=== PATIENT | female | born 1980 | race Caucasian/White ===

== ENCOUNTER 2017-05-21 18:39 | Inpatient (IN) | payer MEDICAID, OTHER ==
--- NOTE | 2017-05-21 18:55 | ED ---
Psych HPI <Vishal Portillo - Last Filed: 05/21/17 20:53> - General Source: patient, RN notes reviewed Mode of arrival: ambulatory Limitations: no limitations <Georges Stewart - Last Filed: 05/22/17 08:05> - General Stated Complaint: suicidal thoughts Time Seen by Provider: 05/21/17 18:42 - History of Present Illness Initial Comments: 36-year-old female presents emergency Department chief complaint of depression, suicidal thoughts. Patient states she has major depressive disorder and bipolar disorder. Patient states that she's been more depressed recently and had some thoughts to hurt herself. Patient states she did cut her finger the other day with a little piece of glass. Her tetanus is up-to-date. Patient denies any alcohol abuse but states that she has a history of drug abuse which she was admitted to opiate pills. She states she has been mostly sober over the last 6 months and currently sees an addiction counselor. Patient denies any fevers, chills, headache, dizziness, chest pain or shortness of breath. ( Georges Stewart) - Related Data Home Medications Medication Instructions Recorded Confirmed Buprenorphine HCl/Naloxone HCl 1 film BC BID 05/21/17 05/21/17 [Bunavail 4.2-0.7 mg Film] Cariprazine HCl [Vraylar] 3 mg PO DAILY 05/21/17 05/21/17 Levomilnacipran HCl [Fetzima] 20 mg PO DAILY 05/21/17 05/21/17 Mirtazapine [Remeron] 15 mg PO HS 05/21/17 05/21/17 Montelukast Sodium [Singulair] 10 mg PO DAILY 05/21/17 05/21/17 Multivitamin [Multivitamins Adult 1 tab PO DAILY 05/21/17 05/21/17 Gummies] lamoTRIgine 200 mg PO DAILY 05/21/17 05/21/17 Allergies Allergy/AdvReac Type Severity Reaction Status Date / Time No Known Allergies Allergy Verified 05/21/17 20:37 Review of Systems ROS Other: All systems not noted in ROS Statement are negative. <Vishal Portillo - Last Filed: 05/21/17 20:53> ROS Other: All systems not noted in ROS Statement are negative. <Georges Stewart - Last Filed: 05/22/17 08:05> ROS Statement: Those systems with pertinent positive or pertinent negative responses have been documented in the HPI. Past Medical History Past Medical History: No Reported History History of Any Multi-Drug Resistant Organisms: None Reported Past Surgical History: Appendectomy, Section Past Psychological History: Anxiety, Depression Smoking Status: Current every day smoker Past Alcohol Use History: None Reported Past Drug Use History: None Reported <Georges Stewart - Last Filed: 05/22/17 08:05> General Exam Limitations: no limitations General appearance: alert, in no apparent distress Head exam: Present: atraumatic, normocephalic, normal inspection Eye exam: Present: normal appearance, PERRL, EOMI. Absent: scleral icterus, conjunctival injection, periorbital swelling ENT exam: Present: normal exam, normal oropharynx, mucous membranes moist, TM's normal bilaterally Neck exam: Present: normal inspection, full ROM. Absent: tenderness, meningismus, lymphadenopathy Respiratory exam: Present: normal lung sounds bilaterally. Absent: respiratory distress, wheezes, rales, rhonchi, stridor Cardiovascular Exam: Present: normal rhythm, tachycardia, normal heart sounds. Absent: systolic murmur, diastolic murmur, rubs, gallop, clicks GI/Abdominal exam: Present: soft, normal bowel sounds. Absent: distended, tenderness, guarding, rebound, rigid Neurological exam: Present: alert, oriented X3, CN II-XII intact Psychiatric exam: Present: depressed Skin exam: Present: warm, dry, intact, normal color. Absent: rash <Georges Stewart - Last Filed: 05/22/17 08:05> Medical Decision Making <Vishal Portillo - Last Filed: 05/21/17 20:53> <Georges Stewart - Last Filed: 05/22/17 08:05> - Medical Decision Making Patient was evaluated by psychiatric nurse who spoke with the psychiatrist patient was admitted to the third floor with a diagnosis of bipolar disorder. Dr. Portillo (Vishal Portillo) - Lab Data Lab Results 05/21/17 Range/Units 19:34 Urine Opiates Screen Detected H (NotDetected) Ur Oxycodone Screen Not Detected (NotDetected) Urine Methadone Screen Not Detected (NotDetected) Ur Propoxyphene Screen Not Detected (NotDetected) Ur Barbiturates Screen Not Detected (NotDetected) U Tricyclic Antidepress Not Detected (NotDetected) Ur Phencyclidine Scrn Not Detected (NotDetected) Ur Amphetamines Screen Not Detected (NotDetected) U Methamphetamines Scrn Not Detected (NotDetected) U Benzodiazepines Scrn Detected H (NotDetected) Urine Cocaine Screen Not Detected (NotDetected) U Marijuana (THC) Screen Detected H (NotDetected) Disposition <Vishal Portillo - Last Filed: 05/21/17 20:53> <Georges Stewart - Last Filed: 05/22/17 08:05> Clinical Impression: Depression, Bipolar disorder Disposition: ADMITTED IP TO THIS HOSP
[2017-05-21] MEDS ORDERED: NICOTINE 21MG/24HR PATCH TRANSDERM STA (19:19)
[2017-05-21] MEDS ORDERED: MAGNESIUM HYDROXIDE 2,400 MG/10 ML CUP PO PRN (21:30)
[2017-05-21] MEDS ORDERED: ACETAMINOPHEN TAB 325 MG TAB PO PRN (21:30)
[2017-05-21] MEDS ORDERED: MAG HYDROX/AL HYDROX/SIMETH 30 ML CUP PO PRN (21:30)
[2017-05-21] MEDS ORDERED: ONDANSETRON 4 MG TAB PO PRN (21:38)
[2017-05-21] MEDS: MIRTAZAPINE 15 MG TAB PO SCH (22:52)
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
[2017-05-22] MEDS: MONTELUKAST 10 MG TAB PO SCH (08:25)
[2017-05-22] MEDS: NICOTINE 14MG/24HR PATCH TRANSDERM SCH (08:25)
[2017-05-22] MEDS: lamoTRIgine 100 MG TAB PO SCH (08:25)
[2017-05-22] MEDS: BUPRENORPHINE HCL SUBLINGUAL SCH (09:08)
[2017-05-22] MEDS: CARIPRAZINE HCL 3 MG PO SCH (09:08)
[2017-05-22] MEDS: NALOXONE HCL SUBLINGUAL SCH (09:08)
[2017-05-22] MEDS: LEVOMILNACIPRAN HCL 20 MG PO SCH (09:08)
[2017-05-22 10:00] LABS: Basophils % (A) 0 %; CH 32.3; CHCM 33.7; Eosinophils # (A) 0.1 k/uL (0-0.7); Eosinophils % (A) 2 %; HDW 2.42; HGB 14.2 gm/dL (11.4-16.0); Luc # (Auto) 0.11; Luc % (Auto) 2; Lymphocytes # (A) 2.6 k/uL (1.0-4.8); Lymphocytes % (A) 44 %; MCH 32.4 pg (25.0-35.0); MCHC 33.7 g/dL (31.0-37.0); MCV 96.1 fL (80.0-100.0); Mean Platelet Volume 7.1; Monocytes # (A) 0.3 k/uL (0-1.0); Monocytes % (A) 5 %; Neutrophils # (A) 2.8 k/uL (1.3-7.7); Neutrophils % (A) 48 %; RBC 4.37 m/uL (3.80-5.40); RDW 12.1 % (11.5-15.5); WBC 5.9 k/uL (3.8-10.6); WBC (Perox) 6.08
[2017-05-22 10:28] LABS: ALT 43 U/L (9-52); AST 34 U/L (14-36); Alkaline Phosphatase 43 U/L (38-126); Anion Gap 8 mmol/L; Blood Urea Nitrogen 21 mg/dL (7-17); Calcium 8.7 mg/dL (8.4-10.2); Carbon Dioxide 28 mmol/L (22-30); Chloride 105 mmol/L (98-107); Glucose 56 mg/dL (74-99); Non-African American GFR(MDRD) >60 (>60 ml/min/1.73 sqM); Potassium 4.1 mmol/L (3.5-5.1); Sodium 141 mmol/L (137-145); Total Bilirubin 0.3 mg/dL (0.2-1.3); Total Protein 6.4 g/dL (6.3-8.2)
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
[2017-05-22] MEDS: MIRTAZAPINE 15 MG TAB PO SCH (20:21)
[2017-05-23] MEDS: NALOXONE HCL SUBLINGUAL SCH ×3 (00:07→21:09)
[2017-05-23] MEDS: BUPRENORPHINE HCL SUBLINGUAL SCH ×3 (00:07→21:09)
[2017-05-23] MEDS: MONTELUKAST 10 MG TAB PO SCH (08:12)
[2017-05-23] MEDS: lamoTRIgine 100 MG TAB PO SCH (08:12)
[2017-05-23] MEDS: NICOTINE 14MG/24HR PATCH TRANSDERM SCH (08:12)
[2017-05-23] MEDS: LEVOMILNACIPRAN HCL 20 MG PO SCH (08:14)
[2017-05-23] MEDS: CARIPRAZINE HCL 3 MG PO SCH (08:14)
--- NOTE | 2017-05-23 11:51 | P.PN ---
Progress Note - Text Interval history: The patient is found in her room she follows me to an interview room. The psychiatric evaluation note was reviewed her case was discussed during team meeting. The patient was admitted for suicidal ideation. She self-inflicted a very superficial wound to her index finger. She had fears of cutting herself more severely. It seems the precipitating stressor was an argument with her whom she plans to separate from. Her psychiatric indications are managed by her primary care physician. He also prescribes Suboxone. She reports today that she has navigated through this crisis and feels that she is stable. She does have a support meeting scheduled for this afternoon with her mother. Staff report that her affect has been expansive but she has been directable and is not reporting any suicidal ideation. Mental status exam: The patient is a shorter statured thin female she is dressed in her own clothing she has a visible tattoo on her neck. Eye contact is appropriate in terms of speech she is verbose but not pressured. She is easily directed. She is able to remain seated in the chair quietly and allow others to talk. She reports no suicidal or homicidal ideation intent or plan. She is endorsing no auditory or visual hallucinations. There is no overt evidence of psychosis. She does not appear overtly hypomanic or manic at this time. Insight and judgment improving. It appears that she has been able to participate in some problem-solving while here on the mental health unit. Plan: The patient's will continue on her current medications however we will discontinue the antipsychotic medication and she feels it may be inducing some feelings of anxiety. We will continue to monitor her for safety. We will await the outcome of the support meeting. It appears that this episode was triggered by the discord with her and her personally disorder symptoms. We will consider discharging her in the next 1-2 days if she demonstrates clinical stability. Vital signs reviewed.
[2017-05-23] MEDS: cloNIDine HCL 0.1 MG TAB PO PRN (18:25)
[2017-05-23] MEDS: LORazepam 1 MG TAB PO PRN (18:25)
[2017-05-23] MEDS: MIRTAZAPINE 15 MG TAB PO SCH (21:10)
[2017-05-24] MEDS: cloNIDine HCL 0.1 MG TAB PO PRN ×2 (01:40→08:36)
[2017-05-24] MEDS: LORazepam 1 MG TAB PO PRN ×2 (01:40→08:36)
[2017-05-24] MEDS: BUPRENORPHINE HCL SUBLINGUAL SCH (08:33)
[2017-05-24] MEDS: NALOXONE HCL SUBLINGUAL SCH (08:33)
[2017-05-24] MEDS: LEVOMILNACIPRAN HCL 20 MG PO SCH (08:34)
[2017-05-24] MEDS: lamoTRIgine 100 MG TAB PO SCH (08:36)
[2017-05-24] MEDS: NICOTINE 14MG/24HR PATCH TRANSDERM SCH (08:38)
[2017-05-24 08:40] VITALS: RESP 18
[2017-05-24] MEDS: MONTELUKAST 10 MG TAB PO SCH (09:23)
--- NOTE | 2017-05-24 09:51 | P.DS ---
Providers Date of admission: 05/21/17 20:32 Expected date of discharge: 05/24/17 Attending physician: Venu Anaya Consults: 05/21/17 21:30 Consult Physician Routine Consulting Provider: Mar Castillo Consult Reason/Comments: h and p, eval and tx r/o metabolic disorder Do you want consulting provider notified?: Yes Primary care physician: Erik Gross - Discharge Diagnosis(es) (1) Bipolar 1 disorder Current Visit: Yes Status: Acute Priority: Medium (2) Opiate dependence Current Visit: Yes Status: Acute Priority: High Hospital Course: Brief summary of admission note: This patient is a 36-year-old female who was admitted to the mental health unit for suicidal ideation and she self-inflicted a superficial laceration to her finger. The wound did not require suturing. It appears the patient had become overwhelmed after having a verbal altercation with her . She had decided that she was going to separate from him. This argument contributed to her having suicidal thoughts. She thought of cutting herself more severely, but decided to only cut her finger superficially prior to her presentation to the hospital. For full details please refer to the psychiatric evaluation dated 05/22/2017. Summary of hospital course: The patient was admitted to the mental health unit voluntarily. She was seen by the [facility] physician. The patient's outpatient psychotropic medications were continued. I assumed care of the patient beginning yesterday. We decided that we would discontinue the antipsychotic medication. The notes were reviewed team meeting was held. The patient participated in a support meeting involving her mother that was productive and her mother supports the patient being discharged and expresses no acute safety concerns. The patient continues to be treated for opioid use disorder by her primary care physician with Suboxone. He has also been managing her psychotropic medications. It was recommended that she follow with an outpatient therapist and psychiatrist upon discharge and she is agreeable. She demonstrated no agitated behavior she's been cooperative. She has reported a resolution of suicidal ideation fairly quickly once admitted to the mental health unit. It appears that she does have cluster B personality disorder traits which were contributing to her presentation to the hospital. Mental status exam: The patient is a shorter statured female appearing her stated age. She is dressed in her own clothing. She has a visible tattoo on the right side of her neck. Eye contact is appropriate. Speech is fluent and spontaneous she is verbose but easily directed. She does not appear hypomanic or manic. She reports her mood is better. Affect remains expansive. She denies having any suicidal or homicidal ideation intent or plan. She reports no auditory or visual hallucinations or specific delusions. There is no overt evidence of psychosis. Thought process can be circumstantial she can be linear with direct questions. She does not appear tangential she demonstrates no loose associations or flight of ideas. Insight and judgment improved. She demonstrates no verbal or physical aggressiveness. No abnormal involuntary movements observed. Impressions 1. Bipolar 1 disorder most recent depressed, opiate use disorder 2. Cluster B traits 3. Marital discord Plan: The patient will be discharged mental health unit today. She will likely reside with her mother upon discharge. [facility]. Social work will arrange the initial appointment. The patient will continue on Lamictal 200 mg daily Fetzima 20mg daily, Remeron 15 mg at bedtime. She will continue her Suboxone prescribed by primary care physician. She is not interested in inpatient chemical dependency treatment at this time as she plans to continue working with her primary care physician regarding her substance use disorder. There is no imminent safety risk she is appropriate for transition to outpatient care as she has process this most recent crisis. Patient Condition at Discharge: Stable Plan - Discharge Summary New Discharge Prescriptions: New Nicotine 14Mg/24Hr Patch [Habitrol] 1 patch TRANSDERM DAILY #12 patch Continue Mirtazapine [Remeron] 15 mg PO HS Buprenorphine HCl/Naloxone HCl [Bunavail 4.2-0.7 mg Film] 1 film BC BID lamoTRIgine 200 mg PO DAILY Montelukast Sodium [Singulair] 10 mg PO DAILY Levomilnacipran HCl [Fetzima] 20 mg PO DAILY Multivitamin [Multivitamins Adult Gummies] 1 tab PO DAILY Discontinued Cariprazine HCl [Vraylar] 3 mg PO DAILY Discharge Medication List Buprenorphine HCl/Naloxone HCl [Bunavail 4.2-0.7 mg Film] 1 film BC BID [History] Levomilnacipran HCl [Fetzima] 20 mg PO DAILY 05/21/17 [History] Mirtazapine [Remeron] 15 mg PO HS 05/21/17 [History] Montelukast Sodium [Singulair] 10 mg PO DAILY 05/21/17 [History] Multivitamin [Multivitamins Adult Gummies] 1 tab PO DAILY 05/21/17 [History] lamoTRIgine 200 mg PO DAILY 05/21/17 [History] Nicotine 14Mg/24Hr Patch [Habitrol] 1 patch TRANSDERM DAILY #12 patch 05/24/17 [ Rx] Follow up Appointment(s)/Referral(s): Erik He DO [Primary Care Provider] - 1-2 days
[2017-05-24 10:09] VITALS: BP 117/74; PULSE 99; TEMP 97.5; BMI 20.9
== END 2017-05-24 12:08 | disposition home or self-care (01) | DRG 885 ==
LOC: EC 18:39 → 3MHU 20:32
PROVIDERS: ADMIT Psychiatry & Neurology Psychiatry; ATTEND Psychiatry & Neurology Psychiatry
DX: F31.9 Bipolar disorder, unspecified (principal); R45.851 Suicidal ideations; F11.20 Opioid dependence, uncomplicated; F60.89 Other specific personality disorders; F17.200 Nicotine dependence, unspecified, uncomplicated; F12.90 Cannabis use, unspecified, uncomplicated; S61.219A Laceration without foreign body of unspecified finger without damage to nail, initial encounter; F41.9 Anxiety disorder, unspecified; Z79.899 Other long term (current) drug therapy; Z63.0 Problems in relationship with spouse or partner
CPT/HCPCS: 80053; 80306; 82075; 84443; 85025; 99285

== ENCOUNTER 2018-10-14 16:08 | Emergency (ER) | payer OTHER ==
[2018-10-14] MEDS ORDERED: SODIUM CHLORIDE 0.9% 1,000 ML IV STA (16:24)
[2018-10-14] MEDS ORDERED: ONDANSETRON 4 MG/2 ML VIAL IVP STA (17:21)
[2018-10-14] MEDS ORDERED: LIDOCAINE 1% INJ 10MG/ML (20 ML MDV) SQ STA (17:22)
--- NOTE | 2018-10-14 17:34 | ED ---
General Adult HPI - General Chief complaint: Nausea/Vomiting/Diarrhea Stated complaint: Vomiting Source: patient, RN notes reviewed, old records reviewed Mode of arrival: ambulatory Limitations: no limitations - History of Present Illness Initial comments: 38-year-old female patient with no pertinent past medical history presents to ED with 4 days of nausea and vomiting. Patient states that since she has had intermittent nausea and vomiting. Patient states that she has nausea after eating follow-up emesis. Patient denies any other symptoms. Patient denies cough congestion, abdominal pain, diarrhea, fever chills, chest pain, shortness of breath. Systemic: Pt denies fatigue, myalgia, fever/chills, rash. Pt denies weakness, night sweats, weight loss. Neuro: Pt denies headache, visual disturbances, syncope or pre-syncope. HEENT: Pt denies ocular discharge or irritation, otalgia, rhinorrhea, pharyngitis or notable lymphadenopathy. Cardiopulmonary: Pt denies chest pain, SOB, heart palpitations, dyspnea on exertion. Abdominal/GI: Pt denies abdominal pain, diarrhea. : Pt denies dysuria, burning w/ urination, frequency/urgency. Denies new onset urinary or bowel incontinence. MSK: Pt denies myalgia, loss of strength or function in extremities. Neuro: Pt denies new onset weakness, paresthesias. - Related Data Home Medications Medication Instructions Recorded Confirmed Buprenorphine HCl/Naloxone HCl 1 film PO DAILY 10/14/18 10/14/18 [Bunavail 6.3-1 mg Film] Gabapentin [Neurontin] 300 mg PO BID 10/14/18 10/14/18 Levomilnacipran HCl [Fetzima] 20 mg PO DAILY 10/14/18 10/14/18 Ondansetron HCl [Zofran] 4 mg PO DAILY 10/14/18 10/14/18 Oxybutynin Chloride [Ditropan] 5 mg PO DAILY 10/14/18 10/14/18 Pramipexole [Mirapex] 1 mg PO DAILY 10/14/18 10/14/18 lamoTRIgine [LaMICtal] 100 mg PO BID 10/14/18 10/14/18 Previous Rx's Medication Instructions Recorded Ondansetron Odt [Zofran ODT] 4 mg PO Q8HR PRN #20 tab 10/14/18 Allergies Allergy/AdvReac Type Severity Reaction Status Date / Time No Known Allergies Allergy Verified 10/14/18 16:22 Review of Systems ROS Statement: Those systems with pertinent positive or pertinent negative responses have been documented in the HPI. ROS Other: All systems not noted in ROS Statement are negative. Past Medical History Past Medical History: No Reported History Additional Past Medical History / Comment(s): Opiod Addiction, PTSD, Bipolar depression, Suicide ideation History of Any Multi-Drug Resistant Organisms: None Reported Past Surgical History: Appendectomy, Section Past Psychological History: Anxiety, Depression Smoking Status: Current every day smoker Past Alcohol Use History: Occasional Past Drug Use History: Opiates - Past Family History Father Family Medical History: Dementia, Sleep Apnea/CPAP/BIPAP Mother Family Medical History: Musculoskeletal Disorder (DDD) General Exam - General Exam Comments Initial Comments: Constitutional: NAD, AOX3, Pt has pleasant affect. HEENT: NC/AT, trachea midline, neck supple, no lymphadenopathy. Posterior pharynx non erythematous, without exudates. External ears appear normal, without discharge. Mucous membranes moist. Eyes PERRLA, EOM intact. There is no scleral icterus. No pallor noted. Cardiopulmonary: RRR, no murmurs, rubs or gallops, no JVD noted. Lungs CTAB in anterior and posterior gutierres. No peripheral edema. Abdominal exam: Abdomen soft and non-distended. Abdomen non-tender to palpation in all 4 quadrants. Bowel sounds active in LLQ. No hepatosplenomegaly. No ecchymosis Neuro: CN II-XII grossly intact. No nuchal rigidity. MSK: No posterior calf tenderness bilaterally, homans sign negative bilaterally. Posterior tibialis and radial pulse +2 bilaterally. Sensation intact in upper and lower extremities. Full active ROM in upper and lower extremities, 5/5 strength. Limitations: no limitations Course Vital Signs 10/14/18 10/14/18 16:12 18:24 Temperature 97.7 F Pulse Rate 90 82 Respiratory 20 18 Rate Blood Pressure 126/76 111/78 O2 Sat by Pulse 98 98 Oximetry Medical Decision Making - Medical Decision Making 38-year-old female patient with no pertinent past medical history presents to ED with 4 days of nausea and vomiting. Patient states that since she has had intermittent nausea and vomiting. Patient states that she has nausea after eating follow-up emesis. Patient denies any other symptoms. Patient denies cough congestion, abdominal pain, diarrhea, fever chills, chest pain, shortness of breath. Physical exam didn't display any acute pathology, abdomen nontender to palpation. An IV line was not able to be established on patient due to poor vasculature, laboratory investigations were able to be drawn. CBC and CMP were not impressive. UA displayed +3 ketones. Patient received Zofran in ED, is unable to tolerate by mouth intake since Zofran administration. Explained his findings to patient at length. Pt once again denied ROS including abdominal pain. Patient to be discharged with Zofran prescription, patient to follow up with PCP in 1-2 days. Patient to return to ED if new signs symptoms develop or if condition worsens in any way. Case discussed with Dr. Miller. - Lab Data Result diagrams: 10/14/18 18:34 10/14/18 18:34 Lab Results 10/14/18 10/14/18 10/14/18 Range/Units 18:23 18:23 18:34 WBC 6.4 (3.8-10.6) k/uL RBC 4.47 (3.80-5.40) m/uL Hgb 14.1 (11.4-16.0) gm/dL Hct 43.6 (34.0-46.0) % MCV 97.6 (80.0-100.0) fL MCH 31.5 (25.0-35.0) pg MCHC 32.2 (31.0-37.0) g/dL RDW 12.2 (11.5-15.5) % Plt Count 238 (150-450) k/uL Neutrophils % 67 % Lymphocytes % 24 % Monocytes % 6 % Eosinophils % 1 % Basophils % 1 % Neutrophils # 4.3 (1.3-7.7) k/uL Lymphocytes # 1.5 (1.0-4.8) k/uL Monocytes # 0.4 (0-1.0) k/uL Eosinophils # 0.0 (0-0.7) k/uL Basophils # 0.0 (0-0.2) k/uL Sodium (137-145) mmol/L Potassium (3.5-5.1) mmol/L Chloride (98-107) mmol/L Carbon Dioxide (22-30) mmol/L Anion Gap mmol/L BUN (7-17) mg/dL Creatinine (0.52-1.04) mg/dL Est GFR (CKD-EPI)AfAm (>60 ml/min/1.73 sqM) Est GFR (CKD-EPI)NonAf (>60 ml/min/1.73 sqM) Glucose (74-99) mg/dL Calcium (8.4-10.2) mg/dL Total Bilirubin (0.2-1.3) mg/dL AST (14-36) U/L ALT (9-52) U/L Alkaline Phosphatase (38-126) U/L Total Protein (6.3-8.2) g/dL Albumin (3.5-5.0) g/dL Amylase (30-110) U/L Lipase (23-300) U/L Urine Color Yellow Urine Appearance Cloudy H (Clear) Urine pH 6.0 (5.0-8.0) Ur Specific [place] 1.033 (1.001-1.035) Urine Protein 1+ H (Negative) Urine Glucose (UA) Negative (Negative) Urine Ketones 3+ H (Negative) Urine Blood Negative (Negative) Urine Nitrite Negative (Negative) Urine Bilirubin 1+ H (Negative) Urine Urobilinogen 4.0 (<2.0) mg/dL Ur Leukocyte Esterase Negative (Negative) Urine WBC 6 H (0-5) /hpf Ur Squamous Epith Cells 4 (0-4) /hpf Urine Bacteria Rare H (None) /hpf Urine Mucus Many H (None) /hpf Urine HCG, Qual Not Detected (Not Detectd) 10/14/18 Range/Units 18:34 WBC (3.8-10.6) k/uL RBC (3.80-5.40) m/uL Hgb (11.4-16.0) gm/dL Hct (34.0-46.0) % MCV (80.0-100.0) fL MCH (25.0-35.0) pg MCHC (31.0-37.0) g/dL RDW (11.5-15.5) % Plt Count (150-450) k/uL Neutrophils % % Lymphocytes % % Monocytes % % Eosinophils % % Basophils % % Neutrophils # (1.3-7.7) k/uL Lymphocytes # (1.0-4.8) k/uL Monocytes # (0-1.0) k/uL Eosinophils # (0-0.7) k/uL Basophils # (0-0.2) k/uL Sodium 140 (137-145) mmol/L Potassium 4.0 (3.5-5.1) mmol/L Chloride 101 (98-107) mmol/L Carbon Dioxide 23 (22-30) mmol/L Anion Gap 16 mmol/L BUN 23 H (7-17) mg/dL Creatinine 0.66 (0.52-1.04) mg/dL Est GFR (CKD-EPI)AfAm >90 (>60 ml/min/1.73 sqM) Est GFR (CKD-EPI)NonAf >90 (>60 ml/min/1.73 sqM) Glucose 92 (74-99) mg/dL Calcium 9.8 (8.4-10.2) mg/dL Total Bilirubin 0.5 (0.2-1.3) mg/dL AST 34 (14-36) U/L ALT 40 (9-52) U/L Alkaline Phosphatase 85 (38-126) U/L Total Protein 8.0 (6.3-8.2) g/dL Albumin 4.9 (3.5-5.0) g/dL Amylase 36 (30-110) U/L Lipase 30 (23-300) U/L Urine Color Urine Appearance (Clear) Urine pH (5.0-8.0) Ur Specific [place] (1.001-1.035) Urine Protein (Negative) Urine Glucose (UA) (Negative) Urine Ketones (Negative) Urine Blood (Negative) Urine Nitrite (Negative) Urine Bilirubin (Negative) Urine Urobilinogen (<2.0) mg/dL Ur Leukocyte Esterase (Negative) Urine WBC (0-5) /hpf Ur Squamous Epith Cells (0-4) /hpf Urine Bacteria (None) /hpf Urine Mucus (None) /hpf Urine HCG, Qual (Not Detectd) Disposition Clinical Impression: Nausea & vomiting Disposition: HOME SELF-CARE Condition: Good Instructions: Acute Nausea and Vomiting (ED) Additional Instructions: Patient to adhere to previously discussed treatment plan and will take medication(s) as directed. Patient to follow up with PCP in 1-2 days. Patient to return to ED if symptoms do not improve. Prescriptions: Ondansetron Odt [Zofran ODT] 4 mg PO Q8HR PRN #20 tab PRN Reason: Nausea Is patient prescribed a controlled substance at d/c from ED?: No Referrals: Erik He DO [Primary Care Provider] - 1-2 days Time of Disposition: 19:32
[2018-10-14] MEDS ORDERED: ONDANSETRON ODT 4 MG TAB PO STA (18:18)
[2018-10-14] MEDS ORDERED: LIDOCAINE 1% INJ 10MG/ML (20 ML MDV) SQ ONE (18:21)
[2018-10-14 18:25] VITALS: RESP 18
[2018-10-14 18:49] LABS: Appearance,Urine Cloudy (Clear); Bacteria,Urine Rare /hpf; Bilirubin,Urine 1+ (Negative); Blood,Urine Negative (Negative); Color,Urine Yellow; Glucose,Urine (UA) Negative (Negative); Ketones,Urine 3+ (Negative); Leukocyte Esterase,Urine Negative (Negative); Mucus,Urine Many /hpf; Nitrite,Urine Negative (Negative); Protein,Urine 1+ (Negative); Specific Gravity,Urine 1.033 (1.001-1.035); Squamous Epithelial Cell,Urine 4 /hpf (0-4)
[2018-10-14 18:53] LABS: Basophils % (A) 1 %; Eosinophils % (A) 1 %; HCT 43.6 % (34.0-46.0); HGB 14.1 gm/dL (11.4-16.0); Lymphocytes # (A) 1.5 k/uL (1.0-4.8); Lymphocytes % (A) 24 %; MCH 31.5 pg (25.0-35.0); MCHC 32.2 g/dL (31.0-37.0); MCV 97.6 fL (80.0-100.0); Mean Platelet Volume 6.6; Monocytes # (A) 0.4 k/uL (0-1.0); Monocytes % (A) 6 %; Neutrophils # (A) 4.3 k/uL (1.3-7.7); Neutrophils % (A) 67 %; Platelet Count 238 k/uL (150-450); RBC 4.47 m/uL (3.80-5.40); RDW 12.2 % (11.5-15.5); WBC 6.4 k/uL (3.8-10.6)
[2018-10-14 19:03] LABS: ALT 40 U/L (9-52); AST 34 U/L (14-36); Albumin 4.9 g/dL (3.5-5.0); Alkaline Phosphatase 85 U/L (38-126); Amylase 36 U/L (30-110); Anion Gap 16 mmol/L; Blood Urea Nitrogen 23 mg/dL (7-17); Calcium 9.8 mg/dL (8.4-10.2); Carbon Dioxide 23 mmol/L (22-30); Chloride 101 mmol/L (98-107); Glucose 92 mg/dL (74-99); Lipase 30 U/L (23-300); Sodium 140 mmol/L (137-145); Total Bilirubin 0.5 mg/dL (0.2-1.3)
[2018-10-14 19:43] VITALS: BP 128/90; PULSE 95; TEMP 97.8
== END 2018-10-14 19:42 | disposition home or self-care (01) ==
LOC: EC 16:08
DX: R11.2 Nausea with vomiting, unspecified (principal); R19.7 Diarrhea, unspecified; F43.10 Post-traumatic stress disorder, unspecified; F32.9 Major depressive disorder, single episode, unspecified; F17.200 Nicotine dependence, unspecified, uncomplicated; Z79.899 Other long term (current) drug therapy; Z53.8 Procedure and treatment not carried out for other reasons
CPT/HCPCS: 36415; 80053; 82150; 83690; 85025; 81001; 81025; 87086; 99284; 96372; J2001

== ENCOUNTER 2018-11-29 15:45 | Emergency (ER) | payer OTHER ==
[2018-11-29 15:52] VITALS: RESP 18
--- NOTE | 2018-11-29 17:00 | ED ---
Extremity Problem HPI - General Chief complaint: Extremity Problem,Nontraumatic Stated complaint: Ankle/leg swelling Time Seen by Provider: 11/29/18 16:22 Source: patient Mode of arrival: ambulatory Limitations: no limitations - History of Present Illness MD Complaint: extremity pain, extremity swelling, joint swelling -: days(s) Location: bilateral lower extremity History of Same: Yes Radiation: none Severity scale (1-10): 3 Quality: aching, constant Consistency: constant Improves with: nothing Worsens with: nothing Associated Symptoms: denies other symptoms - Related Data Home Medications Medication Instructions Recorded Confirmed Buprenorphine HCl/Naloxone HCl 1 film SL DAILY 11/29/18 11/29/18 [Suboxone 8 mg-2 mg Sl Film] Dextroamphetamine/Amphetamine 30 mg PO DAILY 11/29/18 11/29/18 [Adderall] lamoTRIgine [LaMICtal] 150 mg PO DAILY 11/29/18 11/29/18 Allergies Allergy/AdvReac Type Severity Reaction Status Date / Time No Known Allergies Allergy Verified 11/29/18 17:03 Review of Systems ROS Statement: Those systems with pertinent positive or pertinent negative responses have been documented in the HPI. ROS Other: All systems not noted in ROS Statement are negative. Past Medical History Past Medical History: No Reported History Additional Past Medical History / Comment(s): Opiod Addiction, PTSD, Bipolar depression, Suicide ideation History of Any Multi-Drug Resistant Organisms: None Reported Past Surgical History: Appendectomy, Section Past Psychological History: Anxiety, Depression Smoking Status: Current every day smoker Past Alcohol Use History: Occasional Past Drug Use History: Opiates - Past Family History Father Family Medical History: Dementia, Sleep Apnea/CPAP/BIPAP Mother Family Medical History: Musculoskeletal Disorder (DDD) General Exam Limitations: no limitations General appearance: alert, in no apparent distress Head exam: Present: atraumatic, normocephalic, normal inspection Eye exam: Present: normal appearance, PERRL, EOMI. Absent: scleral icterus, conjunctival injection, periorbital swelling ENT exam: Present: normal exam, mucous membranes moist Neck exam: Present: normal inspection. Absent: tenderness, meningismus, lymphadenopathy Respiratory exam: Present: normal lung sounds bilaterally. Absent: respiratory distress, wheezes, rales, rhonchi, stridor Cardiovascular Exam: Present: regular rate, normal rhythm, normal heart sounds. Absent: systolic murmur, diastolic murmur, rubs, gallop, clicks GI/Abdominal exam: Present: soft, normal bowel sounds. Absent: distended, tenderness, guarding, rebound, rigid Extremities exam: Present: full ROM, tenderness, pedal edema, joint swelling, calf tenderness Back exam: Present: normal inspection Neurological exam: Present: alert, oriented X3, CN II-XII intact Psychiatric exam: Present: normal affect, normal mood Skin exam: Present: warm, dry, intact, normal color. Absent: rash Course Vital Signs 11/29/18 11/29/18 15:50 17:32 Temperature 98.2 F Pulse Rate 98 74 Respiratory 18 18 Rate Blood Pressure 120/79 135/85 O2 Sat by Pulse 99 100 Oximetry Medical Decision Making - Lab Data Result diagrams: 11/29/18 17:30 11/29/18 17:30 Lab Results 11/29/18 11/29/18 11/29/18 Range/Units 17:30 17:30 17:30 WBC 4.5 (3.8-10.6) k/uL RBC 3.85 (3.80-5.40) m/uL Hgb 12.0 (11.4-16.0) gm/dL Hct 36.6 (34.0-46.0) % MCV 95.1 (80.0-100.0) fL MCH 31.1 (25.0-35.0) pg MCHC 32.7 (31.0-37.0) g/dL RDW 12.9 (11.5-15.5) % Plt Count 149 L (150-450) k/uL Neutrophils % 54 % Lymphocytes % 37 % Monocytes % 6 % Eosinophils % 2 % Basophils % 0 % Neutrophils # 2.4 (1.3-7.7) k/uL Lymphocytes # 1.6 (1.0-4.8) k/uL Monocytes # 0.3 (0-1.0) k/uL Eosinophils # 0.1 (0-0.7) k/uL Basophils # 0.0 (0-0.2) k/uL PT (9.0-12.0) sec INR (<1.2) APTT (22.0-30.0) sec D-Dimer (<0.60) mg/L FEU Sodium (137-145) mmol/L Potassium (3.5-5.1) mmol/L Chloride (98-107) mmol/L Carbon Dioxide (22-30) mmol/L Anion Gap mmol/L BUN (7-17) mg/dL Creatinine (0.52-1.04) mg/dL Est GFR (CKD-EPI)AfAm (>60 ml/min/1.73 sqM) Est GFR (CKD-EPI)NonAf (>60 ml/min/1.73 sqM) Glucose (74-99) mg/dL Calcium (8.4-10.2) mg/dL Phosphorus (2.5-4.5) mg/dL Magnesium (1.6-2.3) mg/dL Total Bilirubin (0.2-1.3) mg/dL AST (14-36) U/L ALT (9-52) U/L Alkaline Phosphatase (38-126) U/L Total Creatine Kinase 82 (30-135) U/L CK-MB (CK-2) 0.6 (0.0-2.4) ng/mL CK-MB (CK-2) Rel Index 0.7 NT-Pro-B Natriuret Pep pg/mL Total Protein (6.3-8.2) g/dL Albumin (3.5-5.0) g/dL Urine Color Yellow Urine Appearance Clear (Clear) Urine pH 7.5 (5.0-8.0) Ur Specific [place] 1.014 (1.001-1.035) Urine Protein Trace H (Negative) Urine Glucose (UA) Negative (Negative) Urine Ketones Negative (Negative) Urine Blood Negative (Negative) Urine Nitrite Negative (Negative) Urine Bilirubin Negative (Negative) Urine Urobilinogen <2.0 (<2.0) mg/dL Ur Leukocyte Esterase Negative (Negative) 11/29/18 11/29/18 11/29/18 Range/Units 17:30 17:30 17:30 WBC (3.8-10.6) k/uL RBC (3.80-5.40) m/uL Hgb (11.4-16.0) gm/dL Hct (34.0-46.0) % MCV (80.0-100.0) fL MCH (25.0-35.0) pg MCHC (31.0-37.0) g/dL RDW (11.5-15.5) % Plt Count (150-450) k/uL Neutrophils % % Lymphocytes % % Monocytes % % Eosinophils % % Basophils % % Neutrophils # (1.3-7.7) k/uL Lymphocytes # (1.0-4.8) k/uL Monocytes # (0-1.0) k/uL Eosinophils # (0-0.7) k/uL Basophils # (0-0.2) k/uL PT 9.9 (9.0-12.0) sec INR 0.9 (<1.2) APTT 20.7 L (22.0-30.0) sec D-Dimer 0.95 H (<0.60) mg/L FEU Sodium 139 (137-145) mmol/L Potassium 4.9 (3.5-5.1) mmol/L Chloride 104 (98-107) mmol/L Carbon Dioxide 27 (22-30) mmol/L Anion Gap 8 mmol/L BUN 11 (7-17) mg/dL Creatinine 0.63 (0.52-1.04) mg/dL Est GFR (CKD-EPI)AfAm >90 (>60 ml/min/1.73 sqM) Est GFR (CKD-EPI)NonAf >90 (>60 ml/min/1.73 sqM) Glucose 95 (74-99) mg/dL Calcium 9.2 (8.4-10.2) mg/dL Phosphorus 5.2 H (2.5-4.5) mg/dL Magnesium 1.9 (1.6-2.3) mg/dL Total Bilirubin 0.5 (0.2-1.3) mg/dL AST 43 H (14-36) U/L ALT 33 (9-52) U/L Alkaline Phosphatase 52 (38-126) U/L Total Creatine Kinase (30-135) U/L CK-MB (CK-2) (0.0-2.4) ng/mL CK-MB (CK-2) Rel Index NT-Pro-B Natriuret Pep 151 pg/mL Total Protein 6.9 (6.3-8.2) g/dL Albumin 4.0 (3.5-5.0) g/dL Urine Color Urine Appearance (Clear) Urine pH (5.0-8.0) Ur Specific [place] (1.001-1.035) Urine Protein (Negative) Urine Glucose (UA) (Negative) Urine Ketones (Negative) Urine Blood (Negative) Urine Nitrite (Negative) Urine Bilirubin (Negative) Urine Urobilinogen (<2.0) mg/dL Ur Leukocyte Esterase (Negative) - EKG Data -: EKG Interpreted by Me (EKG shows nst rate of 85, MD 136, QRS 100, QTc 445) Disposition Clinical Impression: Bilateral leg edema Disposition: HOME SELF-CARE Condition: Good Instructions (If sedation given, give patient instructions): Leg Edema (ED) Is patient prescribed a controlled substance at d/c from ED?: No Referrals: Erik He DO [Primary Care Provider] - 1-2 days
[2018-11-29 17:42] LABS: Appearance,Urine Clear (Clear); Bilirubin,Urine Negative (Negative); Blood,Urine Negative (Negative); Color,Urine Yellow; Glucose,Urine (UA) Negative (Negative); Ketones,Urine Negative (Negative); Leukocyte Esterase,Urine Negative (Negative); Nitrite,Urine Negative (Negative); PH, Urine 7.5 (5.0-8.0); Protein,Urine Trace (Negative); Specific Gravity,Urine 1.014 (1.001-1.035); Urobilinogen,Urine <2.0 mg/dL (<2.0)
[2018-11-29 17:53] LABS: Basophils % (A) 0 %; Eosinophils # (A) 0.1 k/uL (0-0.7); Eosinophils % (A) 2 %; HCT 36.6 % (34.0-46.0); Lymphocytes # (A) 1.6 k/uL (1.0-4.8); Lymphocytes % (A) 37 %; MCH 31.1 pg (25.0-35.0); MCHC 32.7 g/dL (31.0-37.0); MCV 95.1 fL (80.0-100.0); Mean Platelet Volume 7.3; Monocytes # (A) 0.3 k/uL (0-1.0); Monocytes % (A) 6 %; Neutrophils # (A) 2.4 k/uL (1.3-7.7); Neutrophils % (A) 54 %; Platelet Count 149 k/uL (150-450); RBC 3.85 m/uL (3.80-5.40); RDW 12.9 % (11.5-15.5); WBC 4.5 k/uL (3.8-10.6)
[2018-11-29 18:02] LABS: ALT 33 U/L (9-52); AST 43 U/L (14-36); Alkaline Phosphatase 52 U/L (38-126); Anion Gap 8 mmol/L; Blood Urea Nitrogen 11 mg/dL (7-17); Calcium 9.2 mg/dL (8.4-10.2); Carbon Dioxide 27 mmol/L (22-30); Chloride 104 mmol/L (98-107); Glucose 95 mg/dL (74-99); Magnesium 1.9 mg/dL (1.6-2.3); Phosphorus 5.2 mg/dL (2.5-4.5); Potassium 4.9 mmol/L (3.5-5.1); Sodium 139 mmol/L (137-145); Total Bilirubin 0.5 mg/dL (0.2-1.3); Total Protein 6.9 g/dL (6.3-8.2)
[2018-11-29 18:15] LABS: Creatine Kinase MB 0.6 ng/mL (0.0-2.4)
[2018-11-29 18:22] LABS: INR 0.9 (<1.2); Prothrombin Time 9.9 sec (9.0-12.0)
[2018-11-29 18:25] LABS: D-Dimer 0.95 mg/L FEU (<0.60); Partial Thromboplastin Time 20.7 sec (22.0-30.0)
--- NOTE | 2018-11-29 19:10 | US ---
EXAMINATION TYPE: US venous doppler duplex LE BI DATE OF EXAM: 11/29/2018 6:18 PM COMPARISON: NONE CLINICAL HISTORY: Pain. Bilateral pain and edema. SIDE PERFORMED: Bilateral TECHNIQUE: The lower extremity deep venous system is examined utilizing real time linear array sonog ankit with graded compression, doppler sonography and color-flow sonography. VESSELS IMAGED: External Iliac Vein (EIV) Common Femoral Vein Deep Femoral Vein Greater Saphenous Vein * Femoral Vein Popliteal Vein Small Saphenous Vein * Proximal Calf Veins (* superficial vessels) Right Leg: Negative for DVT Left Leg: Negative for DVT No evidence of DVT bilateral legs. IMPRESSION: Normal bilateral leg duplex venous sonogram.
[2018-11-29] MEDS ORDERED: SODIUM CHLORIDE 0.9% 1,000 ML IV STA (19:19)
--- NOTE | 2018-11-29 20:53 | CT ---
EXAMINATION TYPE: CT angio abd aorta w/Runoff DATE OF EXAM: 11/29/2018 HISTORY: bilateral lower limb pain and swelling CT DLP: 1193.9mGycm Automated Exposure Control for Dose Reduction was Utilized. CONTRAST: CT scan of the abdomen and pelvis is performed with IV Contrast, patient injected with 100cc mL of Is ovue 370. COMPARISON: None FINDINGS: There are 3-D post processed images. The abdominal aorta has normal size and contour. There is patency of the celiac artery and superior m esenteric artery. There is bilateral patency of the renal arteries. There is mild plaque formation in the anterior wall of the lower abdominal aorta. There is arterial flow in the iliac and femoral arteries. There is bilateral arterial flow in the pop liteal and tibial arteries. There is bilateral patency of the tibial artery trifurcations. There is a rterial flow in the anterior and posterior tibial arteries at the ankle. There is normal contrast opa cification of the popliteal and femoral veins. There is no evidence of a soft tissue mass. There is s ome perirectal and perianal edema. The bladder distends smoothly. Uterus is anteverted. I see no evid ence of a bowel obstruction. There is no sign of free air. There is no mesenteric edema. There is no retroperitoneal adenopathy. There is subcutaneous edema ove r the lower lumbar spine. I see no soft tissue mass. There is no evidence of aortic dissection. IMPRESSION: There is minimal atherosclerotic plaque formation on the anterior wall lower abdominal aorta. No evid ence of aortic aneurysm or dissection. No evidence of hemodynamic stenosis. Mild perirectal and perianal edema. Subcutaneous posterior edema. There is mild subcutaneous edema an terior to the left and right tibia.
[2018-11-29] MEDS ORDERED: FUROSEMIDE 10 MG/ML 4 ML VIAL IV STA (21:13)
[2018-11-29 21:15] VITALS: BP 106/88; PULSE 97; TEMP 97.8
== END 2018-11-29 21:38 | disposition home or self-care (01) ==
LOC: EC 15:45
DX: R60.0 Localized edema (principal); M25.40 Effusion, unspecified joint; F11.20 Opioid dependence, uncomplicated; F31.9 Bipolar disorder, unspecified; F41.9 Anxiety disorder, unspecified; F17.200 Nicotine dependence, unspecified, uncomplicated; Z79.899 Other long term (current) drug therapy; Z82.61 Family history of arthritis
CPT/HCPCS: 36415; 93005; 85379; 83880; 80053; 82550; 82553; 83735; 84100; 85025; 85610; 85730; 81003; 87086; 93970; 75635; 99284; 96374; 96361; J1940; Q9967

== ENCOUNTER 2019-05-28 05:22 | Inpatient (IN) | payer OTHER ==
[2019-05-28] MEDS ORDERED: SODIUM CHLORIDE 0.9% 1,000 ML IV STA (05:30)
--- NOTE | 2019-05-28 05:38 | ED ---
Overdose HPI - History of Present Illness MD Complaint: accidental overdose Onset/Timin -: hour(s) Intent: want to go to sleep How Overdose Was Discovered: family/friend present at time Context: Intentional Overdose: relationship problems Treatments Prior to Arrival: none <Dariel Rodgers - Last Filed: 05/28/19 06:06> <Ian Barber - Last Filed: 05/28/19 12:55> - General Stated Complaint: overdose Time Seen by Provider: 05/28/19 05:29 - History of Present Illness Initial Comments: 's patient is a 38-year-old woman with history of presents to be evaluated after she had taken overdose of Xanax. Patient states she took a total of 7 tablets tonight, she was trying to cope with having an argument with her family member. The patient then was becoming more somnolent and difficult to arouse so her family brought her here to be evaluated. The patient states she also does take Suboxone. She denies any other coingestants. (Dariel Rodgers) - Related Data Home Medications Medication Instructions Recorded Confirmed Buprenorphine HCl/Naloxone HCl 1 film SUBLINGUAL DAILY 11/29/18 05/28/19 [Suboxone 8 mg-2 mg Sl Film] lamoTRIgine [LaMICtal] 150 mg PO DAILY 11/29/18 05/28/19 ALPRAZolam [Xanax] 0.5 - 1 mg PO HS PRN 05/28/19 05/28/19 Dextroamphetamine/Amphetamine 20 mg PO BID 05/28/19 05/28/19 [Adderall] Levomilnacipran HCl [Fetzima] 20 mg PO DAILY 05/28/19 05/28/19 QUEtiapine FUMARATE [SEROquel] 300 mg PO HS 05/28/19 05/28/19 cloNIDine HCL [Catapres] 0.1 mg PO DAILY 05/28/19 05/28/19 Allergies Allergy/AdvReac Type Severity Reaction Status Date / Time No Known Allergies Allergy Verified 05/28/19 12:09 Review of Systems ROS Other: All systems not noted in ROS Statement are negative. Constitutional: Denies: fever Eyes: Denies: vision change Respiratory: Denies: cough, dyspnea Cardiovascular: Denies: chest pain, palpitations Gastrointestinal: Denies: abdominal pain, vomiting, diarrhea Musculoskeletal: Denies: back pain Neurological: Denies: headache Psychiatric: Reports: anxiety, depression <Dariel Rodgers - Last Filed: 05/28/19 06:06> ROS Other: All systems not noted in ROS Statement are negative. <Ian Barber - Last Filed: 05/28/19 12:55> ROS Statement: Those systems with pertinent positive or pertinent negative responses have been documented in the HPI. Past Medical History Past Medical History: No Reported History Additional Past Medical History / Comment(s): Opiod Addiction, PTSD, Bipolar depression, Suicide ideation History of Any Multi-Drug Resistant Organisms: None Reported Past Surgical History: Appendectomy, Section Past Psychological History: Anxiety, Depression Smoking Status: Current every day smoker Past Alcohol Use History: Occasional Past Drug Use History: Opiates - Past Family History Father Family Medical History: Dementia, Sleep Apnea/CPAP/BIPAP Mother Family Medical History: Musculoskeletal Disorder (DDD) <Dariel Rodgers - Last Filed: 05/28/19 06:06> General Exam General appearance: other (Patient is somnolent but arousable) Head exam: Present: atraumatic, normocephalic Eye exam: Present: normal appearance, PERRL, EOMI. Absent: scleral icterus, conjunctival injection ENT exam: Present: normal oropharynx Neck exam: Present: normal inspection, full ROM Respiratory exam: Present: normal lung sounds bilaterally. Absent: respiratory distress, wheezes, rales, rhonchi, stridor Cardiovascular Exam: Present: regular rate, normal rhythm, normal heart sounds. Absent: systolic murmur, diastolic murmur, rubs, gallop GI/Abdominal exam: Present: soft. Absent: distended, tenderness, guarding, rebound, mass Extremities exam: Present: normal inspection, normal capillary refill. Absent: pedal edema, calf tenderness Neurological exam: Present: alert, CN II-XII intact. Absent: motor sensory deficit Psychiatric exam: Present: normal affect, normal mood Skin exam: Present: warm, dry, intact, normal color. Absent: rash <Dariel Rodgers - Last Filed: 05/28/19 06:06> Course Vital Signs 05/28/19 05/28/19 05/28/19 05:32 07:00 07:33 Temperature 98.3 F Pulse Rate 110 H 102 H 101 H Respiratory 13 16 16 Rate Blood Pressure 95/69 104/56 106/58 O2 Sat by Pulse 100 99 98 Oximetry 05/28/19 05/28/19 08:21 10:05 Temperature Pulse Rate 92 71 Respiratory 18 18 Rate Blood Pressure 102/61 102/71 O2 Sat by Pulse 99 99 Oximetry Medical Decision Making - Lab Data Result diagrams: 05/28/19 05:34 05/28/19 05:34 - EKG Data -: EKG Interpreted by Ma EKG shows normal: sinus rhythm, axis (Normal), intervals (Normal), QRS complexes (Normal) Rate: tachycardia (Rate 113 bpm) Interpretation: nonspecific ST-T wave changes <Dariel Rodgers - Last Filed: 05/28/19 06:06> - Lab Data Result diagrams: 05/28/19 05:34 05/28/19 05:34 <Ian Barber - Last Filed: 05/28/19 12:55> - Lab Data Lab Results 05/28/19 05/28/19 05/28/19 Range/Units 05:34 05:34 10:45 WBC 6.5 (3.8-10.6) k/uL RBC 3.96 (3.80-5.40) m/uL Hgb 12.2 (11.4-16.0) gm/dL Hct 37.3 (34.0-46.0) % MCV 94.2 (80.0-100.0) fL MCH 30.8 (25.0-35.0) pg MCHC 32.8 (31.0-37.0) g/dL RDW 12.6 (11.5-15.5) % Plt Count 212 (150-450) k/uL Neutrophils % 39 % Lymphocytes % 50 % Monocytes % 7 % Eosinophils % 3 % Basophils % 1 % Neutrophils # 2.5 (1.3-7.7) k/uL Lymphocytes # 3.2 (1.0-4.8) k/uL Monocytes # 0.4 (0-1.0) k/uL Eosinophils # 0.2 (0-0.7) k/uL Basophils # 0.1 (0-0.2) k/uL Sodium 141 (137-145) mmol/L Potassium 3.6 (3.5-5.1) mmol/L Chloride 108 H (98-107) mmol/L Carbon Dioxide 23 (22-30) mmol/L Anion Gap 10 mmol/L BUN 26 H (7-17) mg/dL Creatinine 0.69 (0.52-1.04) mg/dL Est GFR (CKD-EPI)AfAm >90 (>60 ml/min/1.73 sqM) Est GFR (CKD-EPI)NonAf >90 (>60 ml/min/1.73 sqM) Glucose 134 H (74-99) mg/dL Calcium 9.2 (8.4-10.2) mg/dL Total Bilirubin 0.3 (0.2-1.3) mg/dL AST 36 (14-36) U/L ALT 18 (9-52) U/L Alkaline Phosphatase 47 (38-126) U/L Total Protein 6.9 (6.3-8.2) g/dL Albumin 4.3 (3.5-5.0) g/dL Urine HCG, Qual (Not Detectd) Salicylates <1.0 mg/dL Urine Opiates Screen Not Detected (NotDetected) Ur Oxycodone Screen Not Detected (NotDetected) Urine Methadone Screen Not Detected (NotDetected) Ur Propoxyphene Screen Not Detected (NotDetected) Acetaminophen <10.0 ug/mL Ur Barbiturates Screen Not Detected (NotDetected) U Tricyclic Antidepress Not Detected (NotDetected) Ur Phencyclidine Scrn Not Detected (NotDetected) Ur Amphetamines Screen Detected H (NotDetected) U Methamphetamines Scrn Not Detected (NotDetected) U Benzodiazepines Scrn Detected H (NotDetected) Urine Cocaine Screen Not Detected (NotDetected) U Marijuana (THC) Screen Not Detected (NotDetected) Serum Alcohol <10 mg/dL 05/28/19 Range/Units 10:45 WBC (3.8-10.6) k/uL RBC (3.80-5.40) m/uL Hgb (11.4-16.0) gm/dL Hct (34.0-46.0) % MCV (80.0-100.0) fL MCH (25.0-35.0) pg MCHC (31.0-37.0) g/dL RDW (11.5-15.5) % Plt Count (150-450) k/uL Neutrophils % % Lymphocytes % % Monocytes % % Eosinophils % % Basophils % % Neutrophils # (1.3-7.7) k/uL Lymphocytes # (1.0-4.8) k/uL Monocytes # (0-1.0) k/uL Eosinophils # (0-0.7) k/uL Basophils # (0-0.2) k/uL Sodium (137-145) mmol/L Potassium (3.5-5.1) mmol/L Chloride (98-107) mmol/L Carbon Dioxide (22-30) mmol/L Anion Gap mmol/L BUN (7-17) mg/dL Creatinine (0.52-1.04) mg/dL Est GFR (CKD-EPI)AfAm (>60 ml/min/1.73 sqM) Est GFR (CKD-EPI)NonAf (>60 ml/min/1.73 sqM) Glucose (74-99) mg/dL Calcium (8.4-10.2) mg/dL Total Bilirubin (0.2-1.3) mg/dL AST (14-36) U/L ALT (9-52) U/L Alkaline Phosphatase (38-126) U/L Total Protein (6.3-8.2) g/dL Albumin (3.5-5.0) g/dL Urine HCG, Qual Not Detected (Not Detectd) Salicylates mg/dL Urine Opiates Screen (NotDetected) Ur Oxycodone Screen (NotDetected) Urine Methadone Screen (NotDetected) Ur Propoxyphene Screen (NotDetected) Acetaminophen ug/mL Ur Barbiturates Screen (NotDetected) U Tricyclic Antidepress (NotDetected) Ur Phencyclidine Scrn (NotDetected) Ur Amphetamines Screen (NotDetected) U Methamphetamines Scrn (NotDetected) U Benzodiazepines Scrn (NotDetected) Urine Cocaine Screen (NotDetected) U Marijuana (THC) Screen (NotDetected) Serum Alcohol mg/dL Disposition <Dariel Rodgers - Last Filed: 05/28/19 06:06> Time of Disposition: 12:55 <Ian Barber - Last Filed: 05/28/19 12:55> Clinical Impression: Suicide attempt Disposition: ADMITTED IP TO THIS HOSP Referrals: None,Stated [Primary Care Provider] - 1-2 days
[2019-05-28 05:45] LABS: Basophils # (A) 0.1 k/uL (0-0.2); Basophils % (A) 1 %; Eosinophils # (A) 0.2 k/uL (0-0.7); Eosinophils % (A) 3 %; HCT 37.3 % (34.0-46.0); HGB 12.2 gm/dL (11.4-16.0); Lymphocytes # (A) 3.2 k/uL (1.0-4.8); Lymphocytes % (A) 50 %; MCH 30.8 pg (25.0-35.0); MCHC 32.8 g/dL (31.0-37.0); MCV 94.2 fL (80.0-100.0); Mean Platelet Volume 6.8; Monocytes # (A) 0.4 k/uL (0-1.0); Monocytes % (A) 7 %; Neutrophils # (A) 2.5 k/uL (1.3-7.7); Neutrophils % (A) 39 %; Platelet Count 212 k/uL (150-450); RBC 3.96 m/uL (3.80-5.40); RDW 12.6 % (11.5-15.5); WBC 6.5 k/uL (3.8-10.6)
[2019-05-28 05:56] LABS: ALT 18 U/L (9-52); AST 36 U/L (14-36); Acetaminophen <10.0 ug/mL; African American GFR (CKD) >90 (>60 ml/min/1.73 sqM); Albumin 4.3 g/dL (3.5-5.0); Alcohol <10 mg/dL; Alkaline Phosphatase 47 U/L (38-126); Anion Gap 10 mmol/L; Blood Urea Nitrogen 26 mg/dL (7-17); Calcium 9.2 mg/dL (8.4-10.2); Carbon Dioxide 23 mmol/L (22-30); Chloride 108 mmol/L (98-107); Glucose 134 mg/dL (74-99); Non-African American GFR(CKD) >90 (>60 ml/min/1.73 sqM); Potassium 3.6 mmol/L (3.5-5.1); Salicylate <1.0 mg/dL; Sodium 141 mmol/L (137-145); Total Bilirubin 0.3 mg/dL (0.2-1.3); Total Protein 6.9 g/dL (6.3-8.2)
[2019-05-28] MEDS ORDERED: SODIUM CHLORIDE 0.9% 1,000 ML IV ONE ×2 (07:02→12:56)
[2019-05-28 11:20] LABS: Amphetamine Screen,Urine Detected (NotDetected); Benzodiazepines Screen,Urine Detected (NotDetected); Cocaine Screen,Urine Not Detected (NotDetected); Opiate Screen,Urine Not Detected (NotDetected); Phencyclidine Screen,Urine Not Detected (NotDetected); Urn Cannabinoid Scrn Not Detected (NotDetected)
[2019-05-28 11:21] LABS: Barbiturate Screen,Urine Not Detected (NotDetected); Methadone Screen, Urine Not Detected (NotDetected); Oxycodone Screen, Urine Not Detected (NotDetected); Tricyclic Antidepressant,Urine Not Detected (NotDetected)
--- NOTE | 2019-05-28 14:25 | P.HPIM ---
History of Present Illness H&P Date: 05/28/19 The patient is a 38-year-old female with a past medical history of anxiety, bipolar disorder, depression and a history of opiate dependence currently on Suboxone that presents to the ER via private vehicle with her family due to suspected drug overdose. Apparently the patient had been arguing with her son over money and was having a difficult time coping. She reported increased feelings of hopelessness, and depressed mood. She denies any overt suicidal ideation and states that she took approximately 5 1 mg tabs of Xanax and 10-15 15 mg of her Remeron after her son he apparently said that the world would be better off without her. The patient denies any chest pain nausea vomit ing abdominal pain. She is somnolent but marginally arousable just enough to get a partial history. In the ER showed a comprehensive workup EKG showed sinus tachycardia with a rate of 113, UDS was positive for benzodiazepines and amphetamine , serum alcohol was less than 10 salicylates was less than 1.0 in serum Tylenol level was less than 10. the patient was initially tachycardic but this resolved after receiving 2 L of normal saline. Patient is currently on a chief security and safety officer in the ER and re commended for admission Review of Systems Pertinent positives per HPI all other systems are negative Past Medical History Past Medical History: No Reported History Additional Past Medical History / Comment(s): Opiod Addiction, PTSD, Bipolar depression, Suicide ideation History of Any Multi-Drug Resistant Organisms: None Reported Past Surgical History: Appendectomy, Section Past Psychological History: Anxiety, Depression Smoking Status: Current every day smoker Past Alcohol Use History: Occasional Past Drug Use History: Opiates - Past Family History Father Family Medical History: Dementia, Sleep Apnea/CPAP/BIPAP Mother Family Medical History: Musculoskeletal Disorder (DDD) Medications and Allergies Home Medications Medication Instructions Recorded Confirmed Type Buprenorphine HCl/Naloxone HCl 1 film SUBLINGUAL DAILY 11/29/18 05/28/19 History [Suboxone 8 mg-2 mg Sl Film] lamoTRIgine [LaMICtal] 150 mg PO DAILY 11/29/18 05/28/19 History ALPRAZolam [Xanax] 0.5 - 1 mg PO HS PRN 05/28/19 05/28/19 History Dextroamphetamine/Amphetamine 20 mg PO BID 05/28/19 05/28/19 History [Adderall] Levomilnacipran HCl [Fetzima] 20 mg PO DAILY 05/28/19 05/28/19 History QUEtiapine FUMARATE [SEROquel] 300 mg PO HS 05/28/19 05/28/19 History cloNIDine HCL [Catapres] 0.1 mg PO DAILY 05/28/19 05/28/19 History Allergies Allergy/AdvReac Type Severity Reaction Status Date / Time No Known Allergies Allergy Verified 05/28/19 12:09 Physical Exam Vitals: Vital Signs Temp Pulse Resp BP Pulse Ox 05/28/19 13:46 98 F 80 18 98/56 99 05/28/19 10:05 71 18 102/71 99 05/28/19 08:21 92 18 102/61 99 05/28/19 07:33 101 H 16 106/58 98 05/28/19 07:00 102 H 16 104/56 99 05/28/19 05:32 98.3 F 110 H 13 95/69 100 Intake and Output 05/27/19 05/28/19 05/28/19 22:59 06:59 14:59 Other: Weight 60.328 kg Constitutional: No acute distress, somnolent but arousable Eyes: Anicteric sclerae, moist conjunctiva, no lid-lag, PERRLA ENMT: NC/AT,Oropharynx clear, no erythema, exudates Neck:Supple, FROM, no masses, or JVD, No carotid bruits; No thyromegaly Lungs: Clear to auscultation, Clear to percussion, Normal respiratory effort, no accessory muscle use Cardiovascular: Heart regular in rate and rhythm, No murmurs, gallops, or rubs no peripheral edema Abdominal: Soft Nontender, nom distended, no guarding, no rebound or rigidity, Normoactive bowel sounds No hepatomegaly, No splenomegaly, No palpable mass No abdominal wall hernia noted Skin: Normal temperature, tone, texture, turgor, No induration No subcutaneous nodules, No rash, lesions, No ulcers Extremities:No digital cyanosis No clubbing, Pedal pulses intact and symmetrical Radial pulses intact and symmetrical Normal gait and station, No calf tenderness Psychiatric: Alert and oriented to person, place and time, flat affect, emotional and tearful, hopeless Neuro: Muscles Strength 5/5 in all 4 extremities, Sensation to light touch grossly present throughout, Cranial nerves II-XII grossly intact. No focal sensory deficits Results CBC & Chem 7: 05/28/19 05:34 05/28/19 05:34 Labs: Abnormal Lab Results - Last 24 Hours (Table) 05/28/19 05/28/19 Range/Units 05:34 10:45 Chloride 108 H (98-107) mmol/L BUN 26 H (7-17) mg/dL Glucose 134 H (74-99) mg/dL Ur Amphetamines Screen Detected H (NotDetected) U Benzodiazepines Scrn Detected H (NotDetected) Assessment and Plan (1) Metabolic encephalopathy Current Visit: Yes Status: Acute Code(s): G93.41 - METABOLIC ENCEPHALOPATHY SNOMED Code(s): 81008801 (2) Drug overdose Current Visit: Yes Status: Acute Code(s): T50.901A - POISONING BY UNSP DRUG/MEDS/BIOL SUBST, ACCIDENTAL, INIT SNOMED Code(s): 70380886 (3) Suicide attempt Current Visit: Yes Status: Acute Code(s): T14.91XA - SUICIDE ATTEMPT, INITIAL ENCOUNTER SNOMED Code(s): 77168623 (4) Anxiety Current Visit: No Status: Acute Code(s): F41.9 - ANXIETY DISORDER, UNSPECIFIED SNOMED Code(s): 71463761 (5) Opiate dependence Current Visit: No Status: Acute Priority: High Code(s): F11.20 - OPIOID DEPENDENCE, UNCOMPLICATED SNOMED Code(s): 68745199 (6) Bipolar 1 disorder Current Visit: No Status: Acute Priority: Medium Code(s): F31.9 - BIPOLAR DISORDER, UNSPECIFIED SNOMED Code(s): 900070838 Plan: The patient is admitted anticipate a greater than 2 midnight stay with metabolic encephalopathy due to drug overdose overdose in the setting of a patient with depression and anxiety. A UDS was positive for methamphetamine and benzodiazepine, the patient was initially tachycardic but that resolved with IV fluids. We'll continue to monitor her on the telemetry unit, psychiatry has been consulted as a patient will be transferred to psych after being medically cleared. We'll continue with the chief security and safety officer at this time. Continue to follow her clinical course CODE STATUS: Full code Discussed plan of care with: Patient Anticipated discharge: 1-[address]: Psychiatric unit Prophylaxis: SCDs
[2019-05-29] MEDS ORDERED: ACETAMINOPHEN TAB 325 MG TAB PO PRN (02:14)
[2019-05-29 04:54] VITALS: RESP 16
[2019-05-29 08:59] VITALS: TEMP 98.2
[2019-05-29] MEDS ORDERED: NON FORMULARY DRUG (Buprenorphine Hcl/Naloxone Hcl [Suboxone 8 Mg-2 Mg Sl Film] 1 FILM) SUBLINGUAL SCH (09:00)
--- NOTE | 2019-05-29 10:09 | P.PN ---
Subjective Progress Note Date: 05/29/19 Patient seen and examined at bedside with health and safety instructor present, the patient doing well only had a mild headache earlier today resolved after Tylenol. Patient much more awake and alert, no acute events overnight. Objective - Vital Signs Vital signs: Vital Signs Temp 98.2 F 05/29/19 08:00 Pulse 63 05/29/19 08:00 Resp 16 05/29/19 08:00 BP 107/65 05/29/19 08:00 Pulse Ox 98 05/29/19 08:00 Intake & Output 05/28/19 05/29/19 05/29/19 18:59 06:59 18:59 Intake Total 120 800 130 Balance 120 800 130 Weight 60.4 kg Intake: IV 10 Invasive Line 1 10 Intake, IV Titration 800 Amount Sodium Chloride 0.9% 1, 800 000 ml @ 100 mls/hr IV . Q10H ONE Rx#:[id number] Oral 120 120 Other: Voiding Method Toilet # Voids 0 1 # Bowel Movements 0 0 - Exam Constitutional: No acute distress, conversant, pleasant Eyes: Anicteric sclerae, moist conjunctiva, no lid-lag, PERRLA ENMT: NC/AT,Oropharynx clear, no erythema, exudates Neck:Supple, FROM, no masses, or JVD, No carotid bruits; No thyromegaly Lungs: Clear to auscultation, Clear to percussion, Normal respiratory effort, no accessory muscle use Cardiovascular: Heart regular in rate and rhythm, No murmurs, gallops, or rubs no peripheral edema Abdominal: Soft Nontender, nom distended, no guarding, no rebound or rigidity, Normoactive bowel sounds No hepatomegaly, No splenomegaly, No palpable mass No abdominal wall hernia noted Skin: Normal temperature, tone, texture, turgor, No induration No subcutaneous nodules, No rash, lesions, No ulcers Extremities:No digital cyanosis No clubbing, Pedal pulses intact and symmetrical Radial pulses intact and symmetrical Normal gait and station, No calf tenderness Psychiatric: Alert and oriented to person, place and time, flat affect and poor insight, Neuro: Muscles Strength 5/5 in all 4 extremities, Sensation to light touch grossly present throughout, Cranial nerves II-XII grossly intact. No focal sensory deficits - Labs CBC & Chem 7: 05/28/19 05:34 05/28/19 05:34 Labs: Abnormal Lab Results - Last 24 Hours (Table) 05/28/19 Range/Units 10:45 Ur Amphetamines Screen Detected H (NotDetected) U Benzodiazepines Scrn Detected H (NotDetected) Assessment and Plan (1) Metabolic encephalopathy Narrative/Plan: * Secondary to drug overdose * Now resolved Current Visit: Yes Status: Acute Code(s): G93.41 - METABOLIC ENCEPHALOPATHY SNOMED Code(s): 50064084 (2) Drug overdose Narrative/Plan: * With the Xanax and Remeron * Patient doing well with no evidence of toxemia Current Visit: Yes Status: Acute Code(s): T50.901A - POISONING BY UNSP DRUG/MEDS/BIOL SUBST, ACCIDENTAL, INIT SNOMED Code(s): 71751900 (3) Suicide attempt Narrative/Plan: * Psych has been consulted awaiting their recommendations * The patient would be a good candidate for acute inpatient psychiatry treatment * Current Visit: Yes Status: Acute Code(s): T14.91XA - SUICIDE ATTEMPT, INITIAL ENCOUNTER SNOMED Code(s): 80046586 (4) Anxiety Current Visit: No Status: Acute Code(s): F41.9 - ANXIETY DISORDER, UNSPECIFIED SNOMED Code(s): 10372033 (5) Opiate dependence Narrative/Plan: * Continue Suboxone therapy Current Visit: No Status: Acute Priority: High Code(s): F11.20 - OPIOID DEPENDENCE, UNCOMPLICATED SNOMED Code(s): 04493592 (6) Bipolar 1 disorder Current Visit: No Status: Acute Priority: Medium Code(s): F31.9 - BIPOLAR DISORDER, UNSPECIFIED SNOMED Code(s): 990130040 Plan: * Patient medically cleared stable for transfer to acute inpatient psychiatry
[2019-05-29 12:32] VITALS: BP 100/52; PULSE 62
--- NOTE | 2019-05-29 16:37 | P.DS ---
Providers Date of admission: 05/28/19 12:56 Expected date of discharge: 05/29/19 Attending physician: Jarod Houston MD Consults: 05/28/19 12:56 Consult Physician Urgent Consulting Provider: Venu Anaya Consult Reason/Comments: Suicide attempt Do you want consulting provider notified?: Yes Primary care physician: Stated None - Discharge Diagnosis(es) (1) Metabolic encephalopathy Status: Acute (2) Drug overdose Status: Acute (3) Suicide attempt Status: Acute (4) Anxiety Status: Acute (5) Opiate dependence Status: Acute Priority: High (6) Bipolar 1 disorder Status: Acute Priority: Medium Hospital Course: The patient is a 38-year-old female with a history of bipolar 1 disorder depression anxiety that was admitted with metabolic encephalopathy due to drug overdose overdose in the setting of a patient with depression and anxiety. A UDS was positive for methamphetamine and benzodiazepine, the patient was initially tachycardic but that resolved with IV fluids. The patient was placed on a one-to-one director drug safety and was cleared medically and then was subsequently seen by psychiatry and subsequently cleared for discharge home with follow-up with her therapist later this evening at 7 PM follow-up with her PCP on . This discharge process took approximately 35 minutes to coordinate. Focused exam Neuro: Cranial nerves II 12 grossly intact no focal deficits Patient Condition at Discharge: Fair Plan - Discharge Summary Discharge Rx Participant: No New Discharge Prescriptions: Continue lamoTRIgine [LaMICtal] 150 mg PO DAILY Buprenorphine HCl/Naloxone HCl [Suboxone 8 mg-2 mg Sl Film] 1 film SUBLINGUAL DAILY QUEtiapine FUMARATE [SEROquel] 300 mg PO HS Dextroamphetamine/Amphetamine [Adderall] 20 mg PO BID ALPRAZolam [Xanax] 0.5 - 1 mg PO HS PRN PRN Reason: Anxiety cloNIDine HCL [Catapres] 0.1 mg PO DAILY Levomilnacipran HCl [Fetzima] 20 mg PO DAILY Discharge Medication List Buprenorphine HCl/Naloxone HCl [Suboxone 8 mg-2 mg Sl Film] 1 film SUBLINGUAL DAILY 11/29/18 [History] lamoTRIgine [LaMICtal] 150 mg PO DAILY 11/29/18 [History] ALPRAZolam [Xanax] 0.5 - 1 mg PO HS PRN 05/28/19 [History] Dextroamphetamine/Amphetamine [Adderall] 20 mg PO BID 05/28/19 [History] Levomilnacipran HCl [Fetzima] 20 mg PO DAILY 05/28/19 [History] QUEtiapine FUMARATE [SEROquel] 300 mg PO HS 05/28/19 [History] cloNIDine HCL [Catapres] 0.1 mg PO DAILY 05/28/19 [History] Follow up Appointment(s)/Referral(s): Erik He DO [REFERRING] - 05/31/19 1:00 pm Patient Instructions/Handouts: Depression (ED), Narcotic Safety (ED), Help Prevent Suicide (ED), Encephalopathy (DC), Suicide Prevention (ED), Depression in Older Adults (ED) Care Plan Goals (MU): [employer]- Appt with Therapist 05/29 7PM Discharge Disposition: HOME SELF-CARE
--- NOTE | 2019-05-29 17:05 | CONS ---
CONSULTATION DATE OF SERVICE: 05/29/2019. PURPOSE FOR CONSULTATION: Evaluate for depression and a suicide gesture by overdose. HISTORY OF PRESENTING ILLNESS: The patient is a 38-year-old female. She has a history of depression and substance use issues. She had a psychiatric admission to this facility May 22, 2017 for depression and some self-abusive behavior involving cutting her fingers with a piece of glass. The hospitalization at that time was precipitated by conflicts with her . The patient has had long-term issues with alcohol dependence. She states that her current situation is that she had been sober from alcohol for 5 years. One year ago, she relapsed and then got back into being free from alcohol and abusive substances. She notes that she has had a number of stress issues lately. The precipitating factor about this admission was she got into an argument with her 20-year-old son. She became anxious, depressed and hopeless. She ended up taking approximately 5 tablets of Xanax 1 mg and 10-15 tablets of Remeron. She became sedated and then 911 was called. Patient indicates that she has a past diagnosis of bipolar disorder. Current psychotropic medications include: Fetzima 20 mg a day, Seroquel 300 mg a day, Lamictal 150 mg a day, Adderall 20 mg twice a day, Suboxone 8 mg-2 mg daily and Xanax 0.5 mg p.o. q.h.s. The patient indicates that she takes Xanax about 3 times a week, though has only been prescribed Xanax in the last 2 weeks. She says that there have been a lot of family stress issues. She notes that currently she is on probation for an incident that happened May 2018. She was intoxicated at that time and ended up with charges of assault on a police person. She was placed on probation for 2-1/2 years. The patient has to do a regular drug screens frequently. She notes that currently her sleep has been fair. Her mood is up and down. She has quite a bit of anxiety. She did note having a panic attack about a week or 2 ago that brought her to the hospital, though there was nothing more substantial in her evaluation. She notes that she has been seeing a therapist on a weekly basis and sees her family physician who works in addiction medicine that she sees every 2 weeks. She has an appointment today at 7 o'clock with her therapist and a week from with her physician. 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 When I talked to the patient today she said that she recognized the situation of her taking medications was impulsive actions. She denies any current thoughts of harm to self or others. She feels that her therapy has been helpful. She says part of the situation of getting into an argument with her son is that she was worried about his possible use of methamphetamine and that set off flashbacks to problems she has had with substance abuse. Her current living situation is that she lives with her aunt and uncle with her 3 children. She also has a daughter aged 16 and a son 14. She says her daughter is doing well in school, though her 14- year-old has had difficulties with motivation in school. Patient states that she recognizes the problems that build up to her impulsive behavior. She said that she is motivated to make changes to avoid being in risky situations such as where pills might be available. She states that she is aware that she needs to be off Xanax as that puts her at risk for substance use issues. When I presented to her the option of being admitted to the psychiatric unit, she indicated that she feels she has support at home. She also is motivated to continue with her therapy and follow up with her physician. MENTAL STATUS EXAM: Patient was lying in bed with her head up. She gave fairly good eye contact. She was somewhat restless. She answered questions appropriately. Her thoughts were clear, coherent, and goal directed. She was spontaneous and interactive. Her affect was somewhat constricted and a little anxious though not significantly so. Her mood was somewhat down, though not clearly down or depressed. She responded in an appropriate manner and did not seem to be significantly distressed at the time of the interview. There was no indication of thought disorder. Cognition was clear. She was oriented and alert. ASSESSMENT: This 38-year-old female is diagnosed with major depression and substance dependence. She is reporting no thoughts of self-harm. She appears to have fair insight in regards to the situation that led to her overdose. She states that she intends to continue with her outpatient followup and if discharged today, will see her therapist alfredo. She was comfortable with the idea of getting in touch with her primary care physician to set up an appointment for this . I discussed with the patient that ongoing use of Xanax would be a high risk situation for her in regard to the risks for relapse. In addition, there is little or no clear indication for Adderall, particularly at the relatively higher dose that she is on. In relationship to her substance use issues, my recommendation for the patient was to be off Adderall altogether. I noted that there might be indication for her Fetzima to be increased and it would be reasonable for her to continue on Fetzima, Seroquel and Lamictal as well as clonidine, which may offer some benefits in regard to substance use issues. I discussed with the patient as well as nursing that from a psychiatric standpoint, it would be reasonable for the patient to be discharged to home, though she needs to have a followup appointment in place with her therapist for alfredo at 7:00 pm and with her primary care physician on . VÍCTOR / YEFRI: [id number] /
== END 2019-05-29 14:16 | DRG 917 ==
LOC: EC 05:22 → 3SCARD 12:56
PROVIDERS: ADMIT Family Medicine; ATTEND Family Medicine
DX: T42.4X2A Poisoning by benzodiazepines, intentional self-harm, initial encounter (principal); G92 Toxic encephalopathy; F11.20 Opioid dependence, uncomplicated; F31.30 Bipolar disorder, current episode depressed, mild or moderate severity, unspecified; F17.200 Nicotine dependence, unspecified, uncomplicated; F43.10 Post-traumatic stress disorder, unspecified; R51 Headache; F41.9 Anxiety disorder, unspecified; Z79.899 Other long term (current) drug therapy; Z91.5 Personal history of self-harm
CPT/HCPCS: 36415; 80053; 80306; 80320; 80329; 81025; 83520; 85025; 93005; 96360; 96361; 99285